=== PATIENT | female | born 1960 | race Two or more races ===

== ENCOUNTER → 2017-03-17 | Outpatient (CLI) | payer OTHER | END | disposition home or self-care (01) | LOC: KCIC MRI 12:14 | DX: M94.262 Chondromalacia, left knee (principal); M79.4 Hypertrophy of (infrapatellar) fat pad; R60.0 Localized edema | CPT/HCPCS: 73721 ==

== ENCOUNTER → 2017-06-05 | Outpatient (CLI) | payer OTHER ==
[2017-06-05 19:15] LABS: LIPASE 100 U/L (73-393)
== END | disposition home or self-care (01) ==
LOC: LAB 13:49
DX: K80.50 Calculus of bile duct without cholangitis or cholecystitis without obstruction (principal)
CPT/HCPCS: 36415; 83690

== ENCOUNTER → 2018-10-30 | Outpatient (CLI) | payer OTHER ==
[2017-06-02 11:00] VITALS: BP 147/89
[~2018-10-30] MED LIST: AMLO5TAB10 PO; ASPI325T8 PO; ESCITALOPRAM OX10 MG PO; ESTR1PAT10 TP; HYDR-2765 PO; HYOS0.1265 SL; LOSA1TAB19 PO; ONDA4TAB10 SL; PANT40TA77 PO; PROM25TA10 PO
--- NOTE | 2018-10-30 14:08 | RAD ---
MRCP WO CONTRAST: 10/30/2018 8:15 AM INDICATION: 58 years old Female. Abdominal pain postcholecystectomy for 2 years. COMPARISON: Ultrasound abdomen May 30, 2017. TECHNIQUE: Multiplanar multisequence MR imaging of the abdomen was performed without intravenous administration of gadolinium. MRCP protocol was utilized. Maximum intensity projection images of the biliary tree are provided. FINDINGS: LUNG BASES: Unremarkable. ABDOMEN: LIVER: Normal morphology. There is mild diffuse hepatic steatosis present. There is no focal hepatic parenchymal abnormality. BILE DUCTS: CBD 5 mm. There is no intra or extrahepatic biliary ductal dilatation. There is no filling defect, stricture, obstructing lesion or biliary wall thickening identified. GALLBLADDER: Cholecystectomy. PANCREAS: Mild fatty atrophy. Normal caliber pancreatic duct. SPLEEN: Within normal limits. ADRENAL GLANDS: Unremarkable. KIDNEYS: 7 mm simple cyst is identified in the superior pole left kidney. No suspicious renal mass. No hydronephrosis. No hydronephrosis. BOWEL: Normal caliber. PERITONEUM: No ascites or free air. No fluid collection. VASCULATURE: No abdominal aortic aneurysm. Major abdominal veins are patent. RETROPERITONEUM: Within normal limits. LYMPH NODES: Within normal limits. ABDOMINAL WALL: Unremarkable. BONES: No suspicious osseous abnormality. IMPRESSION: No evidence of biliary dilatation, stricture, filling defect, wall thickening or obstructing mass lesion status post cholecystectomy. Mild hepatic steatosis. Electronically signed by: Khalida Spaulding MD (10/30/2018 2:05 PM) [id number]
== END | disposition home or self-care (01) ==
LOC: MRI 07:44
PROVIDERS: ATTEND Internal Medicine Gastroenterology
DX: K76.0 Fatty (change of) liver, not elsewhere classified (principal); K76.89 Other specified diseases of liver; Z90.49 Acquired absence of other specified parts of digestive tract
CPT/HCPCS: 74181

== ENCOUNTER → 2018-11-12 | Outpatient (CLI) | payer OTHER ==
[2017-06-02 11:00] VITALS: BP 147/89
[~2018-11-12] MED LIST changes: +IOHEXOL 240 MG/ML 50ML VIAL. PO ONE; +IOHEXOL 300 MG/ML 100ML VIAL. IV ONE
--- NOTE | 2018-11-12 10:46 | RAD ---
PQRS Compliance Statement: One or more of the following individualized dose reduction techniques were utilized for this examination: 1. Automated exposure control 2. Adjustment of the mA and/or kV according to patient size 3. Use of iterative reconstruction technique CT abdomen/pelvis with contrast 11/12/2018 9:00 AM INDICATION: Abdominal pain for years. COMPARISON: MRCP 10/30/2018 TECHNIQUE: Multiple axial CT images of the abdomen and pelvis were obtained after the intravenous administration of 75 mL Omnipaque 300. Coronal and sagittal reformats are provided. FINDINGS: Lung bases are clear. Heart size is within normal limits. Mild hypoattenuation of the hepatic parenchyma suggestive of hepatic steatosis. Otherwise, liver, spleen, bilateral adrenal glands and pancreas are normal in appearance. Gallbladder is surgically absent. No intrahepatic or extrahepatic biliary ductal dilatation. The abdominal aorta is normal in course and caliber. There are no pathologically enlarged lymph nodes in the abdomen and pelvis. There is no abdominal free fluid. There is no free intraperitoneal air. Oral contrast was administered. Opacified bowel loops demonstrate normal mucosal fold pattern. Small and large bowel are normal in caliber. There is no evidence for bowel obstruction. There are no pericolonic inflammatory changes. A normal, nondilated appendix is visualized without adjacent inflammatory changes. The kidneys enhance symmetrically. There is no suspicious renal mass. There is no hydronephrosis. There are no suspected calculi within the kidneys, ureters or urinary bladder. Urinary bladder is within normal limits given degree of distention. No suspicious pelvic mass is identified. No suspicious osseous abnormality is identified. Grade 1 anterolisthesis of L4 and L5. IMPRESSION: 1. Status post cholecystectomy without intrahepatic or extrahepatic biliary ductal dilatation. 2. Mild hepatic steatosis. 3. Grade 1 anterolisthesis of L4 on L5. Electronically signed by: Khalida Spaulding MD (11/12/2018 10:43 AM) [id number]
== END | disposition home or self-care (01) ==
LOC: CT 08:04
PROVIDERS: ATTEND Internal Medicine Gastroenterology
DX: K76.0 Fatty (change of) liver, not elsewhere classified (principal); M43.16 Spondylolisthesis, lumbar region; I10 Essential (primary) hypertension; Z90.49 Acquired absence of other specified parts of digestive tract; Z90.89 Acquired absence of other organs; Z90.710 Acquired absence of both cervix and uterus
CPT/HCPCS: 74177; Q9966; Q9967

== ENCOUNTER → 2019-01-14 | Outpatient (CLI) | payer OTHER ==
[2017-06-02 11:00] VITALS: BP 147/89
[~2019-01-14] MED LIST changes: -IOHEXOL 240 MG/ML 50ML VIAL. PO ONE; -IOHEXOL 300 MG/ML 100ML VIAL. IV ONE
--- NOTE | 2019-01-14 10:09 | CARD ---
MR#: [id number] Date of Study: 01/14/2019 Ordering Physician: MIGEL FOX, Referring Physician: MIGEL FOX, Tech: Minna Dubois APPROVED REPORT EXAM: Two-dimensional and M-mode echocardiogram with Doppler and color Doppler. Other Information Quality : AverageHR: 79bpm Technically limited study due to body habitus. INDICATION Chest Pain RISK FACTORS Hypertension 2D DIMENSIONS RVDd3.1 (2.9-3.5cm)Left Atrium(2D)3.5 (1.6-4.0cm) IVSd1.0 (0.7-1.1cm)Aortic Root(2D)3.1 (2.0-3.7cm) LVDd5.3 (3.9-5.9cm)LVOT Diameter1.9 (1.8-2.4cm) PWd1.0 (0.7-1.1cm)LVDs3.5 (2.5-4.0cm) FS (%) 33.3 %SV82.7 ml LVEF(%)61.5 (>50%) Aortic Valve AoV Peak Jeff.138.1cm/sAoV VTI28.3cm AO Peak GR.7.6mmHgLVOT Peak Jeff.84.1cm/s LVOT VTI 20.89cmAO Mean GR.4mmHg KAYLA (VMAX)1.85yh5TDR (VTI)2.19cm2 Mitral Valve MV E Vpavgiiq35.0cm/sMV DECEL [id number] MV A Eehiexfo10.9cm/sMV [id number] E/A Ratio1.0MVA (PHT)3.66cm2 TDI E/Lateral E'8.2E/Medial E'8.0 Pulmonary Valve PV Peak Ajnhmytr351.1cm/sPV Peak Grad.4mmHg Tricuspid Valve RAP [id number] Pulmonary Vein S1 Lmgvbbip34.5cm/sD2 Ekamknre28.4cm/s PVa [id number] LEFT VENTRICLE The left ventricle is normal size. There is normal left ventricular wall thickness. The left ventricu lar systolic function is normal. The Ejection Fraction is 55-60%. There is normal LV segmental wall m otion. RIGHT VENTRICLE The right ventricle is normal size. There is normal right ventricular wall thickness. The right ventr icular systolic function is normal. ATRIA The left atrium size is normal. The right atrium size is normal. The interatrial septum is intact wit h no evidence for an atrial septal defect or patent foramen ovale as noted on 2-D or Doppler imaging. AORTIC VALVE The aortic valve is thickened but opens well. Doppler and Color Flow revealed no significant aortic r egurgitation. There is no significant aortic valvular stenosis. MITRAL VALVE The mitral valve is thickened but opens well. There is no evidence of mitral valve prolapse. There is no mitral valve stenosis. Doppler and Color-flow revealed trace mitral regurgitation. TRICUSPID VALVE The tricuspid valve is normal in structure and function. Doppler and Color Flow revealed no tricuspid valve regurgitation noted. There is no tricuspid valve stenosis. PULMONIC VALVE The pulmonic valve is not well visualized. Doppler and Color Flow revealed no pulmonic valvular regur gitation. GREAT VESSELS The aortic root is normal in size. The IVC is normal in size and collapses >50% with inspiration. PERICARDIAL EFFUSION There is no evidence of significant pericardial effusion. Critical Notification Critical Value: No <Conclusion> The left ventricular systolic function is normal. The Ejection Fraction is 55-60%. There is normal LV segmental wall motion. Doppler and Color-flow revealed trace mitral regurgitation. There is no evidence of significant pericardial effusion. Signed by : Migel Fox, Electronically Approved : 01/14/2019 10:09:12
== END | disposition home or self-care (01) ==
LOC: ECHO 08:34
PROVIDERS: ATTEND Internal Medicine Cardiovascular Disease
DX: R07.9 Chest pain, unspecified (principal); I10 Essential (primary) hypertension; Z90.49 Acquired absence of other specified parts of digestive tract
CPT/HCPCS: 93017; 93306

== ENCOUNTER → 2021-07-09 | Outpatient (CLI) | payer OTHER ==
[2017-06-02 11:00] VITALS: BP 147/89
[~2021-07-09] MED LIST changes: +AMLO-186 PO; -AMLO5TAB10 PO
--- NOTE | 2021-07-09 16:35 | RAD ---
History: Nausea and abdomen pain Procedure: The patient ate a standard meal containing 2.1 mCi Tc-99m sulfur colloid. Scintigraphic images of the abdomen were obtained. Counts were obtained. Findings: Retention percentages are as follows: 1 Hr: 52 2 Hr:16 3 Hr:3 4 Hr:0 Normal Retention Percentage Range is as Follows: 1 Hr: 35-91% 2 Hr: 2.7-60% 3 Hr: 0.5-28% 4 Hr: 0-10% Impression: Time to half emptying for solids is estimated at 72 minutes which is within normal limits. Electronically signed by: Rajinder Freitas MD (07/09/2021 4:33 PM) [id number]
== END ==
LOC: NM 07:58
PROVIDERS: ATTEND Internal Medicine Gastroenterology
DX: R11.0 Nausea (principal); R10.9 Unspecified abdominal pain
CPT/HCPCS: 78264; A9541